=== PATIENT | female | born 1960 | race Two or more races ===

== ENCOUNTER → 2022-12-28 | Emergency (ER) | payer OTHER ==
[~2022-12-28] VITALS: Ht 154.9 cm; Wt 86.2 kg
[~2022-12-28] MED LIST: ATORVASTATIN CA10 MG; COZAAR25 MG; MAGNESIUM100 MG; METFORMIN HCL500 M3
== END | disposition left against medical advice (07) ==
LOC: ER 18:04
DX: Z53.21 Procedure and treatment not carried out due to patient leaving prior to being seen by health care provider (principal)